=== PATIENT | female | born 1950 | race Caucasian/White ===

== ENCOUNTER 2017-12-12 08:05 | Emergency (ER) | payer MEDICARE, OTHER ==
[~2017-12-12] VITALS: Ht 152.4 cm; Wt 67.1 kg
[2017-12-12] MEDS ORDERED: HYDR-971 PO (08:41)
[2017-12-12] MEDS ORDERED: INDO50CA PO (08:41)
--- NOTE | 2017-12-12 08:44 | PHYS DOC ---
General Chief Complaint: KNEE SWELLING Stated Complaint: LOWER EXTREMITY PAIN Time Seen by MD: 08:07 Source: patient Exam Limitations: no limitations Problems: History of Present Illness Initial Comments Patient is a 67-year-old female who comes to the ED complaining of right knee pain and swelling. Patient states that she started noticing pain stiffness and swelling in her right knee last night before going to bed. This morning her right knee was swollen and very painful and she states she is unable to bear weight on it. She lives with her son and he brought her to the emergency department and arrives in her own wheelchair. She does have a walker which she can use at home as well. Patient denies any new injury no popping or clicking and no cuts or abrasions anywhere in her right leg. No history of bacteremia or MRSA. Patient has a remote history of right knee arthroscopy for meniscal issue and has osteoarthritis as well. She has pain with any range of motion at the knee and on my evaluation with simple palpation of the joint capsule itself. Further questioning reveals patient does have a history of gout and symptoms are similar. Onset: yesterday Severity: severe Pain/Injury Location: right knee Method of Injury: other Modifying Factors: worse with jarring, worse with movement, improves with rest Allergies: Coded Allergies: Penicillins (Verified Allergy, Intermediate, 12/12/17) Past Medical History Medical History: other (osteoarthritis, diabetes, fibromyalgia, GERD, hypertension, Crohn's, gout) Surgical History: other (hysterectomy, left total knee replacement, right knee arthroscopy) Social History Smoker: non-smoker Alcohol: none Drugs: none Review of Systems Constitutional: denies chills, denies diaphoresis, denies fever, denies malaise Respiratory: denies cough, denies shortness of breath Cardiovascular: denies chest pain, denies palpitations Gastrointestinal: denies abdominal pain, denies nausea, denies vomiting Musculoskeletal: see HPI Psychiatric/Neurological: denies numbness, denies paresthesia, denies weakness Physical Exam General Appearance: WD/WN, no apparent distress HEENT: PERRL/EOMI, normal ENT inspection (very poor dentition) Neck: non-tender, supple Cardiovascular/Respiratory: normal peripheral pulses, no respiratory distress Back: no CVA tenderness, no vertebral tenderness Knees: right knee other (2+ effusion, the joint is very warm to the touch with joint capsule tenderness. Pain with any range of motion there is no evidence of injury and no bony tenderness or bruising) Neurologic/Tendon: normal sensation, normal motor functions, normal tendon functions, responds to pain, no evidence tendon injury Psychiatric: alert, oriented x 3 Skin: warm/dry Orders, Labs, Meds Patient is in agreement, plain films would likely be of no benefit due to no trauma. Physical exam findings are consistent with septic joint versus gouty arthritis. No history of bacteremia, no obvious entry point, normal vital signs are all go against septic joint. Patient refuses joint aspiration for diagnostic/therapeutic "I hate needles." Will treat as gouty exacerbation, pt given colchicine 1.2mg and norco 7.5mg in ED. I discussed signs and symptoms to monitor as well as indications for urgent return to the department. I discussed [id number] prescription medications and close PCP follow-up within the next 2 days. Patient's questions were answered to her satisfaction and she expressed agreement and understanding of the treatment plan. She feels comfortable going home as her son lives with her and will be able to care for her while she is less mobile than normal. Departure Time of Disposition: 08:42 Disposition: 01 HOME, SELF-CARE Diagnosis: Gout Exacerbation right knee Condition: STABLE Patient Instructions: Gout, [id number] Additional Instructions: Please review the patient education materials given by ED staff. Activity as tolerated. Prescription: [place] 5 mg quantity 20, indomethacin 50 mg Take medications with food to avoid nausea. Take [id number] stool softeners and increase fluid intake to avoid opiate associated constipation. Follow-up with Dr. Hernandez in 2-3 days for recheck. Return to ED with new or changing symptoms. PAULINA RODRIGES DO Dec 12, 2017 08:44
[2017-12-12] MEDS: COLCHICINE 0.6 MG TABLET PO ONE ×2 (08:49→09:00)
[2017-12-12] MEDS ORDERED: HYDROcodone/APAP 7.5/325MG 1 TAB TABLET PO ONE (09:00)
[2017-12-12] MEDS ORDERED: ONDANSETRON ODT 4 MG TAB.RAPDIS PO ONE (09:00)
[2017-12-12 09:01] VITALS: BP 150/84
== END 2017-12-12 09:01 | disposition home or self-care (01) ==
LOC: ER 08:05
DX: M10.9 Gout, unspecified (principal); M25.561 Pain in right knee; M19.90 Unspecified osteoarthritis, unspecified site; E11.9 Type 2 diabetes mellitus without complications; M79.7 Fibromyalgia; K21.9 Gastro-esophageal reflux disease without esophagitis; I10 Essential (primary) hypertension; K50.90 Crohn's disease, unspecified, without complications; Z96.653 Presence of artificial knee joint, bilateral; Z88.0 Allergy status to penicillin
CPT/HCPCS: 99284; Q0162

== ENCOUNTER 2017-12-17 18:24 | Emergency (ER) | payer MEDICARE, OTHER ==
[~2017-12-17] VITALS: Ht 152.4 cm; Wt 67.1 kg
[~2017-12-17 18:24] MED LIST: HYDR-971 PO; INDO50CA PO
[2017-12-17] MEDS ORDERED: diphenhydrAMINE 50 MG/ML VIAL ONE (18:57)
[2017-12-17] MEDS ORDERED: KETOROLAC 15 MG/ML VIAL. ONE (18:57)
[2017-12-17] MEDS ORDERED: KETOROLAC 15 MG/ML VIAL. IV ONE (19:15)
[2017-12-17] MEDS ORDERED: diphenhydrAMINE 50 MG/ML VIAL IVP ONE (19:15)
[2017-12-17] MEDS ORDERED: KETOROLAC 30 MG/ML VIAL. IV ONE (19:30)
[2017-12-17] MEDS: IV NORMAL SALINE 1,000ML 1,000 ML IV SCH ×3 (19:30→21:30)
[2017-12-17] MEDS ORDERED: ONDANSETRON PF 4 MG/2 ML VIAL. IV ONE (19:30)
[2017-12-17] MEDS ORDERED: IOHEXOL 300 MG/ML 75 ML VIAL. IV ONE (19:45)
[2017-12-17 19:56] LABS: BASO % 0 % (0-3); EOS # 0.2 x10^3/uL (0.0-0.7); EOS % 2 % (0-3); HEMATOCRIT 32.3 % (36.0-47.0); HEMOGLOBIN 10.2 g/dL (12.0-15.5); LYMPH # 1.7 x10^3/uL (1.0-4.8); LYMPH % 16 % (24-48); MEAN CORPUSCULAR HEMOGLOBIN 22 pg (25-35); MEAN CORPUSCULAR HGB CONC 32 g/dL (31-37); MEAN CORPUSCULAR VOLUME 68 fL (79-100); MONO # 0.6 x10^3/uL (0.0-1.1); MONO % 6 % (0-9); NEUT # 8.2 x10^3uL (1.8-7.7); NEUT % 76 % (31-73); PLATELET COUNT 366 x10^3/uL (140-400); RED BLOOD COUNT 4.74 x10^6/uL (3.50-5.40); RED CELL DISTRIBUTION WIDTH 19.8 % (11.5-14.5); WHITE BLOOD COUNT 10.7 x10^3/uL (4.0-11.0)
[2017-12-17] MEDS ORDERED: CONTRAST GIVEN MC PRN (20:00)
--- NOTE | 2017-12-17 20:01 | RAD ---
Indication: Hypertension. History of stroke TECHNIQUE: CT head without IV contrast COMPARISON: None FINDINGS: No pathologic extra-axial or intra-axial fluid collection. The ventricles and basal cisterns are within normal limits. No focal loss of john-white differentiation. No acute intracranial bleed. Visualized orbits within normal limits. No calvarial lesion. Visualized paranasal sinuses and mastoid air cells are clear. IMPRESSION: No acute intracranial process on this noncontrast CT. Electronically signed by: Tai High DO (12/17/2017 7:57 PM) [facility]
[2017-12-17 20:02] LABS: ALBUMIN 3.7 g/dL (3.4-5.0); POTASSIUM 3.2 mmol/L (3.5-5.1); TOTAL BILIRUBIN 0.2 mg/dL (0.2-1.0); TOTAL PROTEIN 7.4 g/dL (6.4-8.2)
--- NOTE | 2017-12-17 20:51 | RAD ---
Indication: Umbilical pain, nausea and headache TECHNIQUE: CT abdomen and pelvis with 75 mL of Omnipaque 300 with multiplanar reformats. COMPARISON: None FINDINGS: Heart is normal in size. No pericardial or pleural effusion. Lobulated high attenuating lesion is seen in the right lower lobe measuring 1.5 x 1.2 cm. Liver is normal in morphology without focal lesion. Spleen is not enlarged and show no focal lesion. No radiopaque gallstones. No pericholecystic fluid or gallbladder wall thickening. Pancreas within normal limits without peripancreatic inflammatory changes or focal pancreatic lesion. Adrenal glands show no focal mass. No nephrolithiasis or hydronephrosis. Evaluation of pelvis limited due to streak artifact from the right hip prosthesis. Calcific densities seen in the region of the right distal ureter proximal to right UVJ. No retroperitoneal or pelvic adenopathy. No bowel obstruction. Sigmoid diverticulosis. Appendix not visualized. No right lower quadrant inflammatory changes. No umbilical hernia. Suboptimal evaluation of bladder due to streak artifact from the right hip prosthesis. No suspicious bony lesion. IMPRESSION: 1. 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 However, nonemergent CT angiogram of the chest recommended. 2. Streak artifact from the right hip prosthesis limits evaluation of the pelvis. Calcific densities along the expected course of the right distal ureter most likely phleboliths. 3. Sigmoid diverticulosis without diverticulitis. Electronically signed by: Tai High DO (12/17/2017 8:48 PM) [facility]
[2017-12-17 21:22] LABS: ANISOCYTOSIS SLIGHT; OVALOCYTES FEW; PLT ESTIMATE ADEQUATE (ADEQUATE); TARGET CELLS FEW
[2017-12-17 21:23] LABS: HYPOCHROMIA MOD; MICROCYTOSIS MOD; POLYCHROMASIA PRESENT
[2017-12-17 22:15] LABS: BILIRUBIN,URINE NEG (NEG); CLARITY,URINE CLEAR; COLOR,URINE STRAW; GLUCOSE,URINE NEG (NEG)
[2017-12-17 22:16] LABS: BACTERIA,URINE 0 /HPF (0-FEW); NITRITE,URINE NEG (NEG); RBC,URINE 0 /HPF (0-2); SQUAMOUS EPITHELIAL CELL,UR FEW /LPF; UROBILINOGEN,URINE 0.2 mg/dL (0.2 mg/dL); WBC,URINE OCC /HPF (0-4)
[2017-12-17] MEDS ORDERED: ACETAMINOPHEN 500 MG TABLET PO ONE ×3 (22:27→22:45)
[2017-12-17] MEDS: IBUPROFEN 600 MG TABLET. PO ONE (22:30)
[2017-12-17] MEDS ORDERED: NAPROXEN 500 MG TABLET PO ONE (22:45)
--- NOTE | 2017-12-17 23:25 | PHYS DOC ---
Past History Past Medical History: Arthritis, Asthma, CVA, Diabetes, Fibromyalgia, GERD, Hypertension, Other Past Surgical History: Hysterectomy, Knee Replacement, Other Alcohol Use: None Drug Use: None Adult General Chief Complaint Chief Complaint: HYPERTENSION HPI HPI 67-year-old female complaining of crampy abdominal pain. Patient has nausea and vomiting. No diarrhea. She states she has a history Crohn's disease and her abdomen is been bothering her. Patient also reports gradual onset of mild headache typical for her. She is concerned because her blood pressure is elevated. No chest pain or shortness breath. No other concerns or complaints Review of Systems Review of Systems Constitutional: Denies fever or chills [] Eyes: Denies change in visual acuity, redness, or eye pain [] HENT: Denies nasal congestion or sore throat [] Respiratory: Denies cough or shortness of breath [] Cardiovascular: No additional information not addressed in HPI [] GI: Denies abdominal pain, nausea, vomiting, bloody stools or diarrhea [] : Denies dysuria or hematuria [] Musculoskeletal: Denies back pain or joint pain [] Integument: Denies rash or skin lesions [] Neurologic: Denies headache, focal weakness or sensory changes [] Endocrine: Denies polyuria or polydipsia [] All other systems were reviewed and found to be within normal limits, except as documented in this note. Current Medications Current Medications Current Medications Medications (Trade) Dose Ordered Sig/[place] Start Time Stop Time Status Last Admin Dose Admin Acetaminophen (Tylenol) 500 mg STK-MED ONCE 12/17/17 22:42 12/17/17 22:43 DC Diphenhydramine HCl (Benadryl) 50 mg 1X ONCE 12/17/17 19:15 12/17/17 19:16 DC 12/17/17 18:58 50 MG Ibuprofen (Motrin) 600 mg 1X ONCE 12/17/17 22:30 12/17/17 22:42 DC Info (Do NOT chart on this entry -- for MONITORING) 1 each PRN DAILY PRN 12/17/17 20:00 12/19/17 19:59 Iohexol (Omnipaque 300 Mg/ml) 75 ml 1X ONCE 12/17/17 19:45 12/17/17 19:46 DC 12/17/17 20:18 75 ML Ketorolac Tromethamine (Toradol) 30 mg 1X ONCE 12/17/17 19:30 12/17/17 19:47 DC Naproxen (Naprosyn) 500 mg 1X ONCE 12/17/17 22:45 12/17/17 22:46 DC Ondansetron HCl (Zofran) 4 mg 1X ONCE 12/17/17 19:30 12/17/17 19:47 DC 12/17/17 19:30 4 MG Sodium Chloride 1,000 ml @ 1,000 mls/hr Q1H 12/17/17 19:30 12/17/17 22:32 DC 12/17/17 19:30 1,000 MLS/HR Allergies Allergies Allergies Coded Allergies Type Severity Reaction Last Updated Verified Penicillins Allergy Intermediate 12/17/17 Yes ibuprofen Allergy Unknown 12/17/17 Yes oxycodone Allergy Unknown 12/17/17 Yes Physical Exam Physical Exam Well-appearing patient minimal diffuse abdominal tenderness no guarding or rebound no mass or megaly. Normal bowel sounds nondistended no CVA tenderness no suprapubic tenderness Constitutional: Well developed, well nourished, no acute distress, non-toxic appearance. [] HENT: Normocephalic, atraumatic, bilateral external ears normal, oropharynx moist, no oral exudates, nose normal. [] Eyes: PERRLA, EOMI, conjunctiva normal, no discharge. [] Neck: Normal range of motion, no tenderness, supple, no stridor. [] Cardiovascular:Heart rate regular rhythm, no murmur [] Lungs & Thorax: Bilateral breath sounds clear to auscultation [] Abdomen: Bowel sounds normal, soft, no tenderness, no masses, no pulsatile masses. [] Skin: Warm, dry, no erythema, no rash. [] Back: No tenderness, no CVA tenderness. [] Extremities: No tenderness, no cyanosis, no clubbing, ROM intact, no edema. [] Neurologic: Alert and oriented X 3, normal motor function, normal sensory function, no focal deficits noted. [] Psychologic: Affect normal, judgement normal, mood normal. [] Current Patient Data Vital Signs Vital Signs Date Time Temp Pulse Resp B/P (MAP) Pulse Ox O2 Delivery O2 Flow Rate FiO2 12/17/17 18:35 98.0 79 20 98 Room Air Lab Results Laboratory Tests Test 12/17/17 18:50 2/11/18 21:00 White Blood Count 10.7 x10^3/uL (4.0-11.0) Red Blood Count 4.74 x10^6/uL (3.50-5.40) Hemoglobin 10.2 g/dL (12.0-15.5) L Hematocrit 32.3 % (36.0-47.0) L Mean Corpuscular Volume 68 fL (79-100) L Mean Corpuscular Hemoglobin 22 pg (25-35) L Mean Corpuscular Hemoglobin Concent 32 g/dL (31-37) Red Cell Distribution Width 19.8 % (11.5-14.5) H Platelet Count 366 x10^3/uL (140-400) Neutrophils (%) (Auto) 76 % (31-73) H Lymphocytes (%) (Auto) 16 % (24-48) L Monocytes (%) (Auto) 6 % (0-9) Eosinophils (%) (Auto) 2 % (0-3) Basophils (%) (Auto) 0 % (0-3) Neutrophils # (Auto) 8.2 x10^3uL (1.8-7.7) H Lymphocytes # (Auto) 1.7 x10^3/uL (1.0-4.8) Monocytes # (Auto) 0.6 x10^3/uL (0.0-1.1) Eosinophils # (Auto) 0.2 x10^3/uL (0.0-0.7) Basophils # (Auto) 0.0 x10^3/uL (0.0-0.2) Platelet Estimate Adequate (ADEQUATE) Polychromasia Present Hypochromasia Mod Anisocytosis Slight Microcytosis Mod Target Cells Few Ovalocytes Few Sodium Level 140 mmol/L (136-145) Potassium Level 3.2 mmol/L (3.5-5.1) L Chloride Level 103 mmol/L (98-107) Carbon Dioxide Level 27 mmol/L (21-32) Anion Gap 10 (6-14) Blood Urea Nitrogen 19 mg/dL (7-20) Creatinine 1.0 mg/dL (0.6-1.0) Estimated GFR (Cockcroft-Gault) 55.0 BUN/Creatinine Ratio 19 (6-20) Glucose Level 124 mg/dL (70-99) H Calcium Level 9.0 mg/dL (8.5-10.1) Total Bilirubin 0.2 mg/dL (0.2-1.0) Aspartate Amino Transferase (AST) 19 U/L (15-37) Alanine Aminotransferase (ALT) 21 U/L (14-59) Alkaline Phosphatase 60 U/L (46-116) Total Protein 7.4 g/dL (6.4-8.2) Albumin 3.7 g/dL (3.4-5.0) Albumin/Globulin Ratio 1.0 (1.0-1.7) Lipase 120 U/L (73-393) Urine Collection Type Unknown Urine Color Straw Urine Clarity Clear Urine pH 5.5 Urine Specific [place] <=1.005 Urine Protein Neg (NEG-TRACE) Urine Glucose (UA) Neg mg/dL (NEG) Urine Ketones (Stick) Neg mg/dL (NEG) Urine Blood Neg (NEG) Urine Nitrite Neg (NEG) Urine Bilirubin Neg (NEG) Urine Urobilinogen Dipstick 0.2 mg/dL (0.2 mg/dL) Urine Leukocyte Esterase Neg (NEG) Urine RBC 0 /HPF (0-2) Urine WBC Occ /HPF (0-4) Urine Squamous Epithelial Cells Few /LPF Urine Bacteria 0 /HPF (0-FEW) EKG EKG [] Radiology/Procedures Radiology/Procedures [] Course & Med Decision Making Course & Med Decision Making Pertinent Labs and Imaging studies reviewed. (See chart for details) Signs and symptoms consistent with viral syndrome with nausea and vomiting and well-appearing patient stable after hydration. Gradual onset of mild headache. CT head unremarkable. CT abdomen and pelvis with diverticulosis but no evidence of diverticulitis and no other acute pathology. 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 Patient is aware this finding of critical importance of close follow-up with her primary care doctor for CTA of the chest definitive diagnosis and further workup and treatment as needed. Workup benign. Patient agrees with outpatient follow-up and strict return precautions given [] Dragon Disclaimer Dragon Disclaimer This electronic medical record was generated, in whole or in part, using a voice recognition dictation system. Departure Departure: Impression: Primary Impression: Abdominal pain Additional Impressions: Nausea and vomiting Viral syndrome Hypokalemia Anemia Disposition: 01 HOME, SELF-CARE Condition: IMPROVED Referrals: DUFF,AG L DO (PCP) Patient Instructions: Abdominal Pain (Nonspecific) Additional Instructions: It appears that you have a viral syndrome causing your crampy abdominal pain with nausea and vomiting. Use Zofran 1 pill under your tongue every 4 hours as needed. Rest and drink plenty of fluids. Other incidental findings today include mild anemia with hemoglobin of 10.2 and potassium of 3.2. Take the potassium supplementation as prescribed once a day for [address] shows diverticulosis without evidence of diverticulitis. There was an incidental finding on your CAT scan of what appears to be an arteriovenous malformation of your right lower lung. Follow-up with your doctor for reevaluation and to discuss this result and arrange an outpatient CT angiogram of your chest to fully elaborate the nature and extent of this finding and make a definitive diagnosis. Your doctor can discuss the results with you and arrange further workup and treatment as needed. Return immediately for new severe worsening symptoms Problem Qualifiers SEB CHO MD Dec 17, 2017 23:25
[2017-12-17 23:31] VITALS: BP 133/81
== END 2017-12-17 23:45 | disposition home or self-care (01) ==
LOC: ER 18:24
DX: B34.9 Viral infection, unspecified (principal); R10.9 Unspecified abdominal pain; D64.9 Anemia, unspecified; R51 Headache; E11.9 Type 2 diabetes mellitus without complications; E87.6 Hypokalemia; I10 Essential (primary) hypertension; J45.909 Unspecified asthma, uncomplicated; K21.9 Gastro-esophageal reflux disease without esophagitis; K50.90 Crohn's disease, unspecified, without complications; M79.7 Fibromyalgia; Z86.73 Personal history of transient ischemic attack (TIA), and cerebral infarction without residual deficits; Z88.0 Allergy status to penicillin; Z88.5 Allergy status to narcotic agent; Z88.6 Allergy status to analgesic agent
CPT/HCPCS: 36415; 70450; 74177; 80053; 81001; 83690; 85025; 96374; 96375; 99285; J1200; J1885; J2405; Q9967; J7030

== ENCOUNTER → 2018-01-01 | Outpatient (CLI) | payer MEDICARE, OTHER ==
[2017-12-17 23:31] VITALS: BP 133/81
[~2018-01-01] MED LIST changes: +IOHEXOL 300 MG/ML 75 ML VIAL. IV ONE
--- NOTE | 2018-01-01 10:45 | RAD ---
Examination: CT angiography chest History : History of AVM right lower lobe of the lung Comparison: CT abdomen and pelvis 12/17/2017 Technique: Axial CT images were performed with IV contrast with coronal and sagittal 3-D MIP reformats were performed PQRS Compliance Statement: One or more of the following individualized dose reduction techniques were utilized for this examination: 1. Automated exposure control 2. Adjustment of the mA and/or kV according to patient size 3. Use of iterative reconstruction technique. Findings: The visualized thyroid gland grossly appears unremarkable and central airways are patent. The ascending aorta measures 3.7 cm in transverse dimension. There is no evidence of filling defect identified in the main pulmonary artery trunk and right and left main pulmonary arteries and the visualized lobar, segmental branches of the pulmonary arteries. The heart size grossly appears unremarkable. There is a lobulated 1.8 cm density identified in the right lower lobe of the lung base demonstrates peripheral calcification could be AV malformation or nodule. Differentiation is difficult. Otherwise the lungs are clear. The visualized liver, spleen, adrenals grossly appears unremarkable. The gallbladder is mildly distended. Mild degenerative changes thoracic spine. Impression: 1. No evidence of pulmonary embolism. 2. Lobulated peripherally calcified density measuring 1.8 cm identified in the right lower lobe of the lung could be a arterial venous malformation or nodule. Follow-up examination in 6 months is recommended to document stability.
== END | disposition home or self-care (01) ==
LOC: CT 09:54
PROVIDERS: ATTEND Family Medicine
DX: R91.8 Other nonspecific abnormal finding of lung field (principal); K82.8 Other specified diseases of gallbladder
CPT/HCPCS: 71275; Q9967

== ENCOUNTER 2018-03-26 17:31 | Emergency (ER) | payer MEDICARE, OTHER ==
[~2018-03-26] VITALS: Ht 152.4 cm; Wt 72.8 kg
[~2018-03-26 17:31] MED LIST changes: -IOHEXOL 300 MG/ML 75 ML VIAL. IV ONE
[2018-03-26] MEDS ORDERED: DOXYCYCLINE HYCLATE 100 MG TABLET PO ONE (18:30)
[2018-03-26] MEDS ORDERED: DOXY100C2 PO (18:30)
--- NOTE | 2018-03-26 18:31 | PHYS DOC ---
Past History Past Medical History: Arthritis, Asthma, CVA, Diabetes, Fibromyalgia, GERD, Hypertension, Other Past Surgical History: Hip Replacement, Hysterectomy, Oophorectomy, Tonsillectomy, Other Alcohol Use: None Drug Use: None Adult General Chief Complaint Chief Complaint: ABSCESS HPI HPI Patient is a 67 year old female who presents with complaint of a skin abscess. Patient states that the skin abscess is located just above her vagina in her pubic area. Patient states that she noticed this yesterday. Patient states that it seemed to be quite large yesterday that has since decreased in size after it ruptured and drained. Patient states that she's had purulent drainage and blood from the area and small amounts. The patient has not had any history of prior skin abscess and was not sure what to do to take care of it, thus she came to the emergency department for evaluation. Patient has had no fevers and denies any other somatic symptoms at this time. The patient does have history of diabetes mellitus. Patient states that the area itself is tender but denies any red streaking from the area. Review of Systems Review of Systems Constitutional: Denies fever or chills [] Eyes: Denies change in visual acuity, redness, or eye pain [] HENT: Denies nasal congestion or sore throat [] Respiratory: Denies cough or shortness of breath [] Cardiovascular: Denies chest pain or edema[] GI: Denies abdominal pain, nausea, vomiting, bloody stools or diarrhea [] : Denies dysuria or hematuria [] Musculoskeletal: Denies back pain or joint pain [] Integument: Abscess[] Neurologic: Denies headache, focal weakness or sensory changes [] Endocrine: Denies polyuria or polydipsia [] All other systems were reviewed and found to be within normal limits, except as documented in this note. Allergies Allergies Allergies Coded Allergies Type Severity Reaction Last Updated Verified Penicillins Allergy Intermediate 03/26/18 Yes ibuprofen Allergy Unknown 03/26/18 Yes oxycodone Allergy Unknown 03/26/18 Yes Physical Exam Physical Exam Constitutional: Well developed, well nourished, no acute distress, non-toxic appearance. [] HENT: Normocephalic, atraumatic, bilateral external ears normal, oropharynx moist, no oral exudates, nose normal. [] Eyes: PERRLA, EOMI, conjunctiva normal, no discharge. [] Neck: Normal range of motion, no tenderness, supple, no stridor. [] Cardiovascular:Heart rate regular rhythm, no murmur [] Lungs & Thorax: Bilateral breath sounds clear to auscultation [] Abdomen: Bowel sounds normal, soft, no tenderness, no masses, no pulsatile masses. : 1 cm open fluctuant lesion with purulent drainage overlying the mons pubis, mild surrounding erythema, mild tenderness to palpation.[] Skin: Warm, dry, no rash. [] Back: No tenderness, no CVA tenderness. [] Extremities: No tenderness, no cyanosis, no clubbing, ROM intact, no edema. [] Neurologic: Alert and oriented X 3, normal motor function, normal sensory function, no focal deficits noted. [] Current Patient Data Vital Signs Vital Signs Date Time Temp Pulse Resp B/P (MAP) Pulse Ox O2 Delivery O2 Flow Rate FiO2 03/26/18 17:31 98.8 69 18 96 Room Air Lab Results Not performed EKG EKG Not performed[] Radiology/Procedures Radiology/Procedures Not performed[] Course & Med Decision Making Course & Med Decision Making Pertinent Labs and Imaging studies reviewed. (See chart for details) The affected area is amenable to medical treatment at this time and does not require incision and drainage as it is currently draining. Patient started on oral doxycycline in the emergency department. Advised patient follow-up with primary doctor in 2-3 days for reevaluation and recommended return emergency department for any worsening symptoms. Patient voiced understanding and in agreement with treatment plan. Dragon Disclaimer Dragon Disclaimer This electronic medical record was generated, in whole or in part, using a voice recognition dictation system. Departure Departure: Impression: Primary Impression: Abscess Disposition: 01 HOME, SELF-CARE Condition: STABLE Referrals: AG NORIEGA DO (PCP) Patient Instructions: Abscess Additional Instructions: Be sure to hold warm compresses over the affected area for 15-20 minutes at least 3-4 times a day to help the area to continue to drain. Follow-up with your primary doctor in 2-3 days for reevaluation. Return to emergency department for any worsening symptoms. Scripts Doxycycline Hyclate (DOXYCYCLINE HYCLATE) 100 Mg Capsule 1 CAP PO BID, #[id number] CAP Prov: ALIS DARDEN MD 03/26/18 ALIS DARDEN MD March 26, 2018 18:31
[2018-03-26 19:04] VITALS: BP 124/73
== END 2018-03-26 19:05 | disposition home or self-care (01) ==
LOC: ER 17:31
DX: L02.818 Cutaneous abscess of other sites (principal); M19.90 Unspecified osteoarthritis, unspecified site; J45.909 Unspecified asthma, uncomplicated; E11.9 Type 2 diabetes mellitus without complications; M79.7 Fibromyalgia; K21.9 Gastro-esophageal reflux disease without esophagitis; I10 Essential (primary) hypertension; Z86.73 Personal history of transient ischemic attack (TIA), and cerebral infarction without residual deficits; Z88.0 Allergy status to penicillin; Z88.6 Allergy status to analgesic agent; Z88.5 Allergy status to narcotic agent
CPT/HCPCS: 99283

== ENCOUNTER 2018-11-13 15:56 | Emergency (ER) | payer MEDICARE, OTHER ==
[~2018-11-13] VITALS: Ht 154.9 cm; Wt 74.8 kg
[~2018-11-13 15:56] MED LIST changes: +DOXY100C2 PO; +HYDR-3165 PO; -HYDR-971 PO; -INDO50CA PO; +INDO50CA5 PO
--- NOTE | 2018-11-13 16:39 | PHYS DOC ---
Past History Past Medical History: Arthritis, Asthma, CVA, Diabetes, Fibromyalgia, GERD, Hypertension, Other Past Surgical History: Hip Replacement, Hysterectomy, Oophorectomy, Tonsillectomy, Other Smoking: Non-smoker Alcohol Use: None Drug Use: None Adult General Chief Complaint Chief Complaint: HAND PROBLEM HPI HPI Patient is a 68 year old right-handed female who presents with complaining of right hand edema and pain since yesterday without injury. Patient states she has had several wrist fracture more than 30 years ago and denies new injury. Patient complaining of mild erythema of the radial side of wrist with painful range of motion. Patient complaining of numbness of her hand intermittently. Review of Systems Review of Systems Constitutional: Denies fever or chills [] Eyes: Denies change in visual acuity, redness, or eye pain [] HENT: Denies nasal congestion or sore throat [] Respiratory: Denies cough or shortness of breath [] Cardiovascular: No additional information not addressed in HPI [] GI: Denies abdominal pain, nausea, vomiting, bloody stools or diarrhea [] : Denies dysuria or hematuria [] Musculoskeletal: Denies back pain or joint pain [] Integument: Denies rash or skin lesions [] Neurologic: Denies headache, focal weakness or sensory changes [] Endocrine: Denies polyuria or polydipsia [] All other systems were reviewed and found to be within normal limits, except as documented in this note. Current Medications Current Medications Current Medications Medications (Trade) Dose Ordered Sig/[place]ourdes Start Time Stop Time Status Last Admin Dose Admin Acetaminophen/ Hydrocodone Bitart (Lortab 5/325) 1 tab 1X ONCE 11/13/18 16:50 11/13/18 16:51 Allergies Allergies Allergies Coded Allergies Type Severity Reaction Last Updated Verified Penicillins Allergy Intermediate 03/26/18 Yes ibuprofen Allergy Unknown 03/26/18 Yes oxycodone Allergy Unknown 03/26/18 Yes Physical Exam Physical Exam Constitutional: Well developed, well nourished, mild distress, non-toxic appearance. [] HENT: Normocephalic, atraumatic Eyes: PERRLA, EOMI, conjunctiva normal, no discharge. [] Neck: Normal range of motion, no tenderness, supple, no stridor. [] Cardiovascular:Heart rate regular rhythm, no murmur [] Lungs & Thorax: Bilateral breath sounds clear to auscultation [] Skin: Warm, dry, no erythema, no right place with mild edema in the radial side without erythema No tenderness, no cyanosis, no clubbing, ROM intact, no edema. [] Neurologic: Alert and oriented X 3, normal motor function, normal sensory function, no focal deficits noted. [] Psychologic: Affect normal, judgement normal, mood normal. [] Current Patient Data Vital Signs Vital Signs Date Time Temp Pulse Resp B/P (MAP) Pulse Ox O2 Delivery O2 Flow Rate FiO2 11/13/18 16:07 98.3 63 16 95 Room Air EKG EKG [] Radiology/Procedures Radiology/[place] [address] IMAGING REPORT Signed PATIENT: MADI MARISCAL ACCOUNT: [id number] : 1950 LOCATION: ER AGE: 68 SEX: F EXAM STATUS: REG ER ORD. PHYSICIAN: DERIAN ALFONSO MD REASON: pain PROCEDURE: HAND RIGHT 3V Clinical indications: Hand and wrist swelling that started 2 days ago. Pain. No recent trauma. 3 view right wrist study: No acute fracture or dislocation or osteolytic process is seen. There is widening of the scaphoid lunate joint space which may be due to a tear of the scaphoid lunate ligament. 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 Three-view right hand study: No acute fracture or dislocation or osteolytic process is seen. There is mild primary degenerative osteoarthritis of the first interphalangeal joint. IMPRESSION: No acute osseous abnormality. Scaphoid lunate ligament tear. 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 No radiopaque foreign body is evident. Electronically signed by: Zain Farley MD (11/13/2018 5:11 PM) [id number] DICTATED AND SIGNED BY: ZAIN FARELY MD DATE: 11/13/18 1708 CC: AG NORIEGA DO; DERIAN ALFONSO MD ~ Course & Med Decision Making Course & Med Decision Making Pertinent Imaging studies reviewed. (See chart for details) Evaluation of patient in ER showed 68-year-old female patient with complaining of pain and edema of the right wrist without injury. X-ray did not show acute bone problem and showed scaphoid lunate ligament tear. Velcro wrist splint was provided and patient instructed to follow-up with her primary care physician. Dragon Disclaimer Dragon Disclaimer This electronic medical record was generated, in whole or in part, using a voice recognition dictation system. Departure Departure: Impression: Primary Impression: Sprain of right wrist Disposition: HOME, SELF-CARE (at 1720) Condition: IMPROVED Referrals: AG NORIEGA DO (PCP) Patient Instructions: Wrist Sprain with [facility] Additional Instructions: Apply ice on the affected area Follow-up with your primary care physician in 3-5 days Return to ER if not getting better Scripts Hydrocodone Bit/Acetaminophen (NORCO 5-325 TABLET) 1 Each Tablet 1 TAB PO PRN Q6HRS PRN for PAIN, #14 TAB 0 Refills Prov: DERIAN ALFONSO MD 11/13/18 DERIAN ALFONSO MD Nov 13, 2018 16:39
[2018-11-13] MEDS ORDERED: HYDROcodone/APAP 5/325MG 1 TAB TABLET PO ONE (16:50)
--- NOTE | 2018-11-13 17:15 | RAD ---
Clinical indications: Hand and wrist swelling that started 2 days ago. Pain. No recent trauma. 3 view right wrist study: No acute fracture or dislocation or osteolytic process is seen. There is widening of the scaphoid lunate joint space which may be due to a tear of the scaphoid lunate ligament. 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 Three-view right hand study: No acute fracture or dislocation or osteolytic process is seen. There is mild primary degenerative osteoarthritis of the first interphalangeal joint. IMPRESSION: No acute osseous abnormality. Scaphoid lunate ligament tear. 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 No radiopaque foreign body is evident. Electronically signed by: Freeman Farley MD (11/13/2018 5:11 PM) [id number]
[2018-11-13] MEDS ORDERED: HYDR-3165 PO (17:22)
[2018-11-13 17:28] VITALS: BP 142/92
== END 2018-11-13 17:30 | disposition home or self-care (01) ==
LOC: ER 15:56
DX: S63.591A Other specified sprain of right wrist, initial encounter (principal); M19.90 Unspecified osteoarthritis, unspecified site; J45.909 Unspecified asthma, uncomplicated; E11.9 Type 2 diabetes mellitus without complications; M79.7 Fibromyalgia; K21.9 Gastro-esophageal reflux disease without esophagitis; I10 Essential (primary) hypertension; Z86.73 Personal history of transient ischemic attack (TIA), and cerebral infarction without residual deficits; Z88.0 Allergy status to penicillin; Z88.6 Allergy status to analgesic agent; Z88.5 Allergy status to narcotic agent; X58.XXXA Exposure to other specified factors, initial encounter; Y93.89 Activity, other specified; Y92.89 Other specified places as the place of occurrence of the external cause; Y99.8 Other external cause status
CPT/HCPCS: 29125; 73110; 73130; 99283

== ENCOUNTER → 2019-04-29 | Outpatient (CLI) | payer MEDICARE, OTHER ==
--- NOTE | 2019-04-29 10:34 | RAD ---
EXAM: CT Chest without IV contrast CLINICAL HISTORY: Pulmonary nodule COMPARISON: 01/01/2018 TECHNIQUE: CT of the chest without intravenous contrast. Axial, coronal and sagittal reformatted images were generated. ---PQRS compliance statement - One or more of the following individualized dose reduction techniques were utilized for this study: 1. Automated exposure control 2. Adjustment of the mA and/or kV according to patient size 3. Use of iterative reconstruction technique--- FINDINGS: Lack of intravenous contrast limits evaluation of solid organs, vasculature, and lymph nodes. Chest: No pleural effusion or pneumothorax. Heart is not enlarged. Coronary artery calcifications are seen. Calcified mediastinal and hilar lymph nodes are noted. Evaluation for mediastinal and hilar lymphadenopathy is limited given noncontrast examination. No axillary lymphadenopathy. Linear opacities in the left lower lobe and lingula likely scarring/atelectasis. Calcified lung nodule in the right lower lobe appears progressively calcified on today's examination, likely calcified granuloma. Visualized Upper abdomen: Upper abdomen is grossly unremarkable. Bones: Osseous structures are grossly unremarkable. IMPRESSION: 1. Calcified nodule in the right lower lobe is essentially unchanged, possibly calcified granuloma. Electronically signed by: Dwight Meyer MD (04/29/2019 10:31 AM) [facility]
== END | disposition home or self-care (01) ==
LOC: CT 09:10
PROVIDERS: ATTEND Specialist
DX: I25.10 Atherosclerotic heart disease of native coronary artery without angina pectoris (principal); R91.1 Solitary pulmonary nodule; R59.0 Localized enlarged lymph nodes; I10 Essential (primary) hypertension
CPT/HCPCS: 71250

== ENCOUNTER → 2019-05-17 | Day surgery (SDC) | payer MEDICARE, OTHER ==
[~2019-05-17] MED LIST changes: +ALBU2.5V8 INH; +ALBUTEROL SULFATE 2.5 MG/3 ML NEBU. NEB PRN; +ATROPINE 0.5 MG/5 ML DISP.SYRIN. IV PRN; +GABA600T7 PO; +HYDR-2145 PO; +HYOS0.1264 PO; +IV RINGERS SOLUTION,LACTATED 1,000 ML IV SCH; +LIDOCAINE 2% PF Vial for OR 5 ML VIAL. ONE; +META-21 PO; +METF10007 PO; +METO-247 PO; +METR-34 PO; +NALOXONE 0.4 MG/ML VIAL. IV PRN; +OMEP20CA10 PO; +ONDANSETRON PF 4 MG/2 ML VIAL. IV PRN; +ONDANSETRON PF 4 MG/2 ML VIAL. ONE; +PROPOFOL 20 ML IV ONE; +PROPOFOL 40 ML IV ONE; +SIMV40TA3 PO; +SUCR1TAB PO; +SULF1TAB24 PO; +TRAM50TA PO; +hydrALAZINE 20 MG/ML VIAL. IV PRN; +hydrALAZINE 20 MG/ML VIAL. ONE
[2019-05-17 14:55] VITALS: BP 196/87
--- NOTE | 2019-05-21 14:07 | PATHOLOGY ---
[facility] Accession Number: [id number] . 01 Material submitted: . PART A: stomach - ANTRUM PART B: stomach - BODY OF STOMACH POLYP. Modifiers: body PART C: colon - ASCENDING COLON POLYP. Modifiers: ascending . 01 Clinical history: . Gastritis . 02 Diagnosis: A. Gastric biopsies, antrum: - Chronic gastritis, mild. . B. Gastric biopsies, stomach body polyp: - Fundic gland polyp, with mild chronic inflammation. . C. Colon biopsy, ascending colon polyp: - Tubular adenoma. (JPM:[facility] 05/21/2019) [facility]/05/21/2019 . 02 Comment: Sections of the gastric antral biopsy show congestion and mild chronic inflammation. There is a lymphoid aggregate present within the inflammatory infiltrate. A properly controlled immunoperoxidase stain for Helicobacter is negative for Helicobacter organisms. . Sections of the gastric body biopsy reveal a fundic gland polyp showing mild chronic inflammation. There are no adenomatous changes or evidence of malignancy. . Sections of the ascending colon biopsy reveal a tubular adenoma showing no high-grade dysplasia or evidence of malignancy. (JPM:[facility] 05/21/2019) . Special stain performed: Immunoperoxidase for Helicobacter on A1. . 02 Electronically signed: . Juan Gomez MD, Pathologist NPI- [id number] . 01 Gross description: . A. The specimen is received in formalin, labeled "[place], [place], antrum-gastric", are two geller soft tissues measuring 0.2 cm in greatest dimension each, entirely submitted in A1. . B. The specimen is received in formalin, labeled "[place], [place], body of stomach polyp", are few geller soft tissue fragments measuring 0.5 x 0.5 x 0.1 cm in aggregate, entirely submitted in B1. . C. The specimen is received in formalin, labeled "[place], [place], ascending colon polyp", is a geller soft tissue measuring 0.2 cm in greatest dimension, entirely submitted in C1. ([facility]; 05/20/2019) [facility] . 02 Pathologist provided ICD-10: K29.50, K31.7, D12.2 . 02 CPT . 263645, 245589, 737029, G55829 Specimen Comment: A courtesy copy of this report has been sent to Specimen Comment: [phone], . Specimen Comment: Report sent to / DR ESCOBAR Performed at: 01 [facility] [address], [place] [id number] MD Mg Gar MD Phone: [phone] Performed at: 02 [facility] [address] [place], [place] [id number] MD Juan Gomez MD Phone: [phone]
== END ==
LOC: SURG 10:41
PROVIDERS: ATTEND Internal Medicine Gastroenterology
DX: Z12.11 Encounter for screening for malignant neoplasm of colon (principal); D12.2 Benign neoplasm of ascending colon; K31.7 Polyp of stomach and duodenum; K29.00 Acute gastritis without bleeding; K29.50 Unspecified chronic gastritis without bleeding; K57.30 Diverticulosis of large intestine without perforation or abscess without bleeding; K64.1 Second degree hemorrhoids; Z88.0 Allergy status to penicillin; Z88.8 Allergy status to other drugs, medicaments and biological substances; Z79.899 Other long term (current) drug therapy
CPT/HCPCS: 43239; 43450; 45380; 82947; 88305; 88342; J0360; J2405; J2704; J7120; 43249; J2001

== ENCOUNTER 2019-05-28 12:36 | Emergency (ER) | payer MEDICARE, OTHER ==
[~2019-05-28] VITALS: Ht 154.9 cm; Wt 72.8 kg
[~2019-05-28 12:36] MED LIST changes: -ALBUTEROL SULFATE 2.5 MG/3 ML NEBU. NEB PRN; -ATROPINE 0.5 MG/5 ML DISP.SYRIN. IV PRN; -HYOS0.1264 PO; -IV RINGERS SOLUTION,LACTATED 1,000 ML IV SCH; -LIDOCAINE 2% PF Vial for OR 5 ML VIAL. ONE; -METR-34 PO; -NALOXONE 0.4 MG/ML VIAL. IV PRN; -ONDANSETRON PF 4 MG/2 ML VIAL. IV PRN; -ONDANSETRON PF 4 MG/2 ML VIAL. ONE; -PROPOFOL 20 ML IV ONE; -PROPOFOL 40 ML IV ONE; -SULF1TAB24 PO; -TRAM50TA PO; -hydrALAZINE 20 MG/ML VIAL. IV PRN; -hydrALAZINE 20 MG/ML VIAL. ONE
--- NOTE | 2019-05-28 12:59 | PHYS DOC ---
Past History Past Medical History: Arthritis, Asthma, CVA, Diabetes, Fibromyalgia, GERD, Hypertension, Other Past Surgical History: Hip Replacement, Hysterectomy, Oophorectomy, Tonsillectomy, Other Smoking: Non-smoker Alcohol Use: None Drug Use: None Adult General Chief Complaint Chief Complaint: RECTAL BLEED HPI HPI Patient is a 68-year-old female presents complaining of left-sided abdominal pain that started approximately 2:00 this morning. Describes it as cramping sensation. Notes blood in her stool. Nothing makes the symptoms better or worse. She is post recent EGD and colonoscopy on May 17, 2019. Biopsies were performed of both sites. No bleeding prior to today. No nausea or vomiting. No coffee ground emesis. Reports that it is bright blood from her rectum. Denies any rashes, bruising, swelling. Denies being on any blood thinners. Symptoms are moderate in intensity.[] Review of Systems Review of Systems Constitutional: Denies fever or chills [] Eyes: Denies change in visual acuity, redness, or eye pain [] HENT: Denies nasal congestion or sore throat [] Respiratory: Denies cough or shortness of breath [] Cardiovascular: No chest pain or palpitations[] GI: See history of present illness[] : Denies dysuria or hematuria [] Musculoskeletal: Denies back pain or joint pain [] Integument: Denies rash or skin lesions [] Neurologic: Denies headache, focal weakness or sensory changes [] Endocrine: Denies polyuria or polydipsia [] All other systems were reviewed and found to be within normal limits, except as documented in this note. Current Medications Current Medications Current Medications Medications (Trade) Dose Ordered Sig/Lourdes Start Time Stop Time Status Last Admin Dose Admin Morphine Sulfate (Morphine 2mg Syringe) 2 mg PRN Q15MIN PRN 05/28/19 13:00 05/29/19 12:59 UNV Sodium Chloride 1,000 ml @ 100 mls/hr Q10H 05/28/19 12:51 05/28/19 22:50 UNV Allergies Allergies Allergies Coded Allergies Type Severity Reaction Last Updated Verified Penicillins Allergy Intermediate 05/17/19 Yes ibuprofen Allergy Unknown 05/17/19 Yes oxycodone Allergy Unknown 05/17/19 Yes Physical Exam Physical Exam Constitutional: Well developed, well nourished, no acute distress, non-toxic appearance. [] HENT: Normocephalic, atraumatic, bilateral external ears normal, oropharynx moist, no oral exudates, nose normal. [] Eyes: PERRLA, EOMI, conjunctiva normal, no discharge. [] Neck: Normal range of motion, no tenderness, supple, no stridor. [] Cardiovascular:Heart rate regular rhythm, no murmur [] Lungs & Thorax: Bilateral breath sounds clear to auscultation [] Abdomen: Bowel sounds normal, soft, left-sided abdominal tenderness, no rebound, no guarding, no rigidity, sits up and lays back without any significant difficulty, no masses, no pulsatile masses. Rectal exam performed with solar manufacturer's representative. No thrombosed hemorrhoids. No external blood. Vault was empty. No gross bleeding. [] Skin: Warm, dry, no erythema, no rash. [] Back: No tenderness, no CVA tenderness. [] Extremities: No tenderness, no cyanosis, no clubbing, ROM intact, no edema. [] Neurologic: Alert and oriented X 3, normal motor function, normal sensory function, no focal deficits noted. [] Psychologic: Affect normal, judgement normal, mood normal. [] EKG EKG [] Radiology/Procedures Radiology/Procedures PROCEDURE: CT ABD PELV W/ORAL&IV CONTRAST EXAM: CT Abdomen and Pelvis with IV contrast CLINICAL HISTORY: Rectal bleeding, colitis. COMPARISON: 12/17/2017 TECHNIQUE: Helical CT of the abdomen and pelvis was performed following the administration of intravenous contrast. Axial, coronal and sagittal reformatted images were generated. PQRS compliance statement - One or more of the following individualized dose reduction techniques were utilized for this study: 1. Automated exposure control 2. Adjustment of the mA and/or kV according to patient size 3. Use of iterative reconstruction technique FINDINGS: Lower chest: Calcified granuloma in the right lower lobe. Linear opacities in the lingula likely scarring/atelectasis. Coronary artery calcifications are seen Abdomen and Pelvis: Gallbladder is normal. No focal liver lesion. Spleen is unremarkable. Adrenal glands are normal in appearance. Pancreas is unremarkable. Symmetric nephrograms. Focal thinning in the lower pole the left kidney likely cortical scarring. No focal renal lesion. No hydronephrosis. No hydroureter. Descending colon and sigmoid are essentially decompressed. Appendix is not seen. No small or large bowel dilatation. Colonic diverticula are seen. No evidence for acute diverticulitis. Of note, evaluation of the pelvis is limited given streak artifact from right hip arthroplasty. No abdominal or pelvic ascites. No abdominal or pelvic lymphadenopathy. Atherosclerotic calcifications of the aorta are seen. Small fat-containing periumbilical hernia is seen. Bones: Left hip osteoarthritis. Right hip arthroplasty. Degenerative changes of the spine are also seen. IMPRESSION: 1. Colonic diverticulosis without evidence for acute diverticulitis. 2. No pericolonic inflammatory changes are seen. 3. No free or loculated abdominal or pelvic collection is seen. [] Course & Med Decision Making Course & Med Decision Making Pertinent Labs and Imaging studies reviewed. (See chart for details) ED course: Patient arrived, was placed in bed, and tolerated exam well. She was able to tolerate oral contrast. She will was feeling much better with the pain medicine administered. She was transferred to and from radiology with any complications. After returning from radiology she had a bowel movement without any gross blood. No blood on the toilet paper. Discussed findings and plan with patient who voiced understanding. All questions were answered. She was discharged in improved condition. Medical decision making: There is no evidence of an obstruction or perforation. Given the timing from her colonoscopy, this may be from a healing/scab sloughing off, process. There is no evidence of diverticulitis. No evidence of significant anemia. No evidence of other surgical pathology. No pancreatitis. No bleeding diathesis. No evidence of inadequate pain control. We will prescribe pain medicine and antispasmodic. Will prescribe "just in case" antibiotics in case there is recurrence of bleeding or pain consistent with possible diverticulitis. Patient is aware to not take the antibiotics unless the discomfort or bleeding return.[] Dragon Disclaimer Dragon Disclaimer This electronic medical record was generated, in whole or in part, using a voice recognition dictation system. Departure Departure: Impression: Primary Impression: Rectal bleeding Disposition: 01 HOME, SELF-CARE Condition: IMPROVED Referrals: ROBINSON ESCOBAR MD (PCP) Follow-up in 2 days Patient Instructions: Diverticulosis, Rectal Bleeding Additional Instructions: Drink plenty of fluids. Follow-up with your regular doctor and GI specialist in 2 days. Return to the ER if worsening pain, bleeding, or any other concerns While Bactrim and metronidazole were prescribed for you, hold off on taking them for 2 days. Take them if there is worsening pain or bleeding. Scripts Metronidazole (METRONIDAZOLE) 500 Mg Tablet 500 MG PO QID for diverticular disease for 10 Days, #40 TAB Prov: DAT SEGURA DO 05/28/19 Tramadol Hcl (TRAMADOL HCL) 50 Mg Tablet 50 MG PO PRN Q6HRS PRN for PAIN, #20 TAB Prov: DAT SEGURA DO 05/28/19 Hyoscyamine Sulfate (LEVSIN) 0.125 Mg Tablet 0.125 MG PO QID for abdominal pain/cramping, #30 TAB Prov: DAT SEGURA DO 05/28/19 Sulfamethoxazole/Trimethoprim (BACTRIM DS TABLET) 1 Each Tablet 1 TAB PO BID for diverticular disease, #20 TAB Prov: DAT SEGURA DO 05/28/19 DAT SEGURA DO May 28, 2019 12:59
[2019-05-28] MEDS ORDERED: IV NORMAL SALINE 1,000ML 1,000 ML IV SCH (13:00)
[2019-05-28] MEDS ORDERED: MORPHINE SULFATE 2 MG/ML DISP.SYRIN. IV/SQ PRN (13:00)
[2019-05-28 13:18] LABS: BASO % 0 % (0-3); EOS # 0.2 x10^3/uL (0.0-0.7); EOS % 2 % (0-3); HEMATOCRIT 42.6 % (36.0-47.0); HEMOGLOBIN 14.8 g/dL (12.0-15.5); LYMPH # 2.3 x10^3/uL (1.0-4.8); LYMPH % 24 % (24-48); MEAN CORPUSCULAR HEMOGLOBIN 32 pg (25-35); MEAN CORPUSCULAR HGB CONC 35 g/dL (31-37); MEAN CORPUSCULAR VOLUME 92 fL (79-100); MONO # 0.5 x10^3/uL (0.0-1.1); MONO % 5 % (0-9); NEUT # 6.6 x10^3uL (1.8-7.7); NEUT % 69 % (31-73); PLATELET COUNT 313 x10^3/uL (140-400); RED BLOOD COUNT 4.61 x10^6/uL (3.50-5.40); RED CELL DISTRIBUTION WIDTH 13.5 % (11.5-14.5); WHITE BLOOD COUNT 9.6 x10^3/uL (4.0-11.0)
[2019-05-28] MEDS ORDERED: IOHEXOL 240 MG/ML 50ML VIAL. PO ONE (13:30)
[2019-05-28] MEDS ORDERED: IOHEXOL 300 MG/ML 75 ML VIAL. IV ONE (13:30)
[2019-05-28 13:32] LABS: ALBUMIN 4.1 g/dL (3.4-5.0); ALBUMIN/GLOBULIN RATIO 1.1 (1.0-1.7); CALCIUM 9.9 mg/dL (8.5-10.1); CREATININE 0.8 mg/dL (0.6-1.0); GFR 70.9; POTASSIUM 3.2 mmol/L (3.5-5.1); TOTAL BILIRUBIN 0.5 mg/dL (0.2-1.0); TOTAL PROTEIN 7.8 g/dL (6.4-8.2)
[2019-05-28 13:51] LABS: FECAL OB PT POSITIVE (NEG)
[2019-05-28 14:42] LABS: BILIRUBIN,URINE NEG (NEG); CLARITY,URINE HAZY; COLOR,URINE YELLOW; GLUCOSE,URINE NEG (NEG)
[2019-05-28 14:43] LABS: BACTERIA,URINE FEW /HPF (0-FEW); NITRITE,URINE NEG (NEG); SQUAMOUS EPITHELIAL CELL,UR FEW /LPF; UROBILINOGEN,URINE 0.2 mg/dL (0.2 mg/dL)
--- NOTE | 2019-05-28 14:47 | RAD ---
EXAM: CT Abdomen and Pelvis with IV contrast CLINICAL HISTORY: Rectal bleeding, colitis. COMPARISON: 12/17/2017 TECHNIQUE: Helical CT of the abdomen and pelvis was performed following the administration of intravenous contrast. Axial, coronal and sagittal reformatted images were generated. PQRS compliance statement - One or more of the following individualized dose reduction techniques were utilized for this study: 1. Automated exposure control 2. Adjustment of the mA and/or kV according to patient size 3. Use of iterative reconstruction technique FINDINGS: Lower chest: Calcified granuloma in the right lower lobe. Linear opacities in the lingula likely scarring/atelectasis. Coronary artery calcifications are seen Abdomen and Pelvis: Gallbladder is normal. No focal liver lesion. Spleen is unremarkable. Adrenal glands are normal in appearance. Pancreas is unremarkable. Symmetric nephrograms. Focal thinning in the lower pole the left kidney likely cortical scarring. No focal renal lesion. No hydronephrosis. No hydroureter. Descending colon and sigmoid are essentially decompressed. Appendix is not seen. No small or large bowel dilatation. Colonic diverticula are seen. No evidence for acute diverticulitis. Of note, evaluation of the pelvis is limited given streak artifact from right hip arthroplasty. No abdominal or pelvic ascites. No abdominal or pelvic lymphadenopathy. Atherosclerotic calcifications of the aorta are seen. Small fat-containing periumbilical hernia is seen. Bones: Left hip osteoarthritis. Right hip arthroplasty. Degenerative changes of the spine are also seen. IMPRESSION: 1. Colonic diverticulosis without evidence for acute diverticulitis. 2. No pericolonic inflammatory changes are seen. 3. No free or loculated abdominal or pelvic collection is seen. Electronically signed by: Dwight Meyer MD (05/28/2019 2:44 PM) [facility]
[2019-05-28 14:57] VITALS: BP 129/71
[2019-05-28] MEDS ORDERED: HYOSCYAMINE 0.125 MG TAB.RAPDIS PO ONE (15:15)
[2019-05-28] MEDS ORDERED: TRAM50TA PO (15:21)
[2019-05-28] MEDS ORDERED: HYOS0.1264 PO (15:21)
[2019-05-28] MEDS ORDERED: METR-34 PO (15:21)
[2019-05-28] MEDS ORDERED: SULF1TAB24 PO (15:21)
== END 2019-05-28 15:30 | disposition home or self-care (01) ==
LOC: ER 12:36
DX: K62.5 Hemorrhage of anus and rectum (principal); K57.30 Diverticulosis of large intestine without perforation or abscess without bleeding; M16.12 Unilateral primary osteoarthritis, left hip
CPT/HCPCS: 36415; 74177; 80053; 81001; 82274; 83690; 85025; 85610; 85730; 96374; 99285; J2270; Q9966; Q9967; 96361; J7030

== ENCOUNTER → 2019-05-30 | Outpatient (CLI) | payer MEDICARE, OTHER ==
[2019-05-28 14:57] VITALS: BP 129/71
[~2019-05-30] MED LIST changes: +HYOS0.1264 PO; +IOHEXOL 240 MG/ML 50ML VIAL. ONE; +METR-34 PO; +SULF1TAB24 PO; +TRAM50TA PO
--- NOTE | 2019-05-30 19:43 | RAD ---
INDICATION: Osteoporosis screening. Postmenopausal evaluation COMPARISON: None. TECHNIQUE: Bone densitometry was performed through the left forearm FINDINGS: Left forearm: BMD: 0.56 T-Score: -2.2 IMPRESSION: Forearm bone mineral density is on the border between osteopenia and osteoporosis. Electronically signed by: Dajuan Lamb MD (05/30/2019 7:40 PM) [facility]
--- NOTE | 2019-05-31 14:45 | RAD ---
DATE: 05/31/2019 EXAM: DIGITAL SCREEN BILAT W/CAD HISTORY: Routine screening evaluation COMPARISON: None available This study was interpreted with the benefit of Computerized Aided Detection (CAD). FINDINGS: Breast Density: FATTY The Breast Parenchyma is primarily fatty replaced. Breast parenchyma level density A.. No suspicious masses, microcalcifications or architectural distortion is present to suggest malignancy in either breast. The visualized axillae are unremarkable. IMPRESSION: No mammographic evidence of malignancy BI-RADS CATEGORY: 1 NEGATIVE RECOMMENDED FOLLOW-UP: 12M 12 MONTH FOLLOW-UP PQRS compliance statement: Patient information was entered into a reminder system with a target due date for the next mammogram. Mammography is a sensitive method for finding small breast cancers, but it does not detect them all and is not a substitute for careful clinical examination. A negative mammogram does not negate a clinically suspicious finding and should not result in delay in biopsying a clinically suspicious abnormality. "Our facility is accredited by the [employer] Mammography Program."
== END | disposition home or self-care (01) ==
LOC: DXRAD 09:41
PROVIDERS: ATTEND Specialist
DX: Z12.31 Encounter for screening mammogram for malignant neoplasm of breast (principal); Z13.820 Encounter for screening for osteoporosis; M85.832 Other specified disorders of bone density and structure, left forearm
CPT/HCPCS: 77067; 77081

== ENCOUNTER → 2020-07-03 | Outpatient (CLI) | payer MEDICARE, OTHER ==
[~2020-07-03] MED LIST changes: +INDO50CA15 PO; -INDO50CA5 PO; +IOHEXOL 240 MG/ML 50ML VIAL. PO ONE; +IOHEXOL 300 MG/ML 75 ML VIAL. IV ONE; -OMEP20CA10 PO; +OMEP20CA16 PO; +SIMV40TA18 PO; -SIMV40TA3 PO
--- NOTE | 2020-07-03 12:24 | RAD ---
EXAM: Abdomen and pelvis CT with intravenous contrast. HISTORY: Crohn's disease. Radiculitis. TECHNIQUE: Computed tomographic images of the abdomen and pelvis were obtained following the administration of intravenous contrast. Multiplanar reformatting was performed. *One or more of the following individualized dose reduction techniques were utilized for this examination: 1. Automated exposure control. 2. Adjustment of the mA and/or kV according to patient size. 3. Use of iterative reconstruction technique. COMPARISON: 05/28/2019. FINDINGS: Evaluation of the lower thorax demonstrates a stable subcarinal and medial right lower lobe calcified granulomas. There is no infiltrate or pleural effusion. There is no suspicious hepatic lesion. There is mild hepatic steatosis. The gallbladder, pancreas, spleen and adrenal glands are unremarkable. The kidneys are unremarkable. The appendix is absent. There is moderate stool throughout the colon. There is sigmoid diverticulosis. There is no diverticulitis. The bladder is partially obscured due to right hip arthroplasty metallic artifact. The aorta is normal in caliber. There is aortobiiliac atherosclerosis. There is no lymphadenopathy. There is degenerative change throughout the lumbar spine. There are left hemicolectomy changes at L5-S1. There is severe left hip osteoarthritis. IMPRESSION: 1. Sigmoid diverticulosis. 2. Mild hepatic steatosis. 3. Moderate colonic stool. 4. No acute abdominal or pelvic finding. Electronically signed by: Luba Nunes MD (07/03/2020 12:21 PM) [facility]
== END | disposition home or self-care (01) ==
LOC: CT 08:17
PROVIDERS: ATTEND Specialist
DX: K76.0 Fatty (change of) liver, not elsewhere classified (principal); K57.30 Diverticulosis of large intestine without perforation or abscess without bleeding; J84.10 Pulmonary fibrosis, unspecified; M16.12 Unilateral primary osteoarthritis, left hip; M47.816 Spondylosis without myelopathy or radiculopathy, lumbar region
CPT/HCPCS: 74177; Q9966; Q9967

== ENCOUNTER 2020-08-22 23:26 | Emergency (ER) | payer MEDICARE, OTHER ==
[~2020-08-22] VITALS: Ht 154.9 cm; Wt 76.4 kg
[~2020-08-22 23:26] MED LIST changes: -IOHEXOL 240 MG/ML 50ML VIAL. ONE; -IOHEXOL 240 MG/ML 50ML VIAL. PO ONE; -IOHEXOL 300 MG/ML 75 ML VIAL. IV ONE
[2020-08-22 23:58] VITALS: BP 158/98
[2020-08-23] MEDS ORDERED: BACLOFEN 10 MG TABLET PO STA (00:23)
[2020-08-23] MEDS ORDERED: predniSONE 10 MG TABLET PO ONE (00:30)
[2020-08-23] MEDS ORDERED: PRED-220 PO (00:34)
[2020-08-23] MEDS ORDERED: BACL10TA PO (00:34)
[2020-08-23] MEDS ORDERED: TRAM50TA PO (00:34)
--- NOTE | 2020-08-23 00:35 | PHYS DOC ---
Past History Past Medical History: Arthritis, Asthma, CVA, Diabetes, Fibromyalgia, GERD, Hypertension, Other Past Surgical History: Hip Replacement, Hysterectomy, Oophorectomy, Tonsillectomy, Other Smoking: Non-smoker Alcohol Use: None Drug Use: None General Adult EDM: Chief Complaint: Neck Pain HPI: HPI: 69-year-old female presents with left-sided neck pain. The patient had pain that started last night. It is a sharp pain that started in the supraspinatus area and radiates up her neck to the base of her skull. It has been intermittent throughout the day, but this evening it is more consistent. She rates it at a moderate level. She is unable to fall asleep so she came to the emergency room. She has tried multiple positions with her adjustable bed without relief. She is tried Tylenol without relief. She cannot take ibuprofen due to GERD. She denies any falls or trauma. She has had pain like this with her neck before several years ago, but no official diagnosis was made. It improved with pain medication and exercises. She denies any other concerns or complaints at this time. Review of Systems: Review of Systems: Constitutional: Denies fever or chills Eyes: Denies change in visual acuity HENT: Neck pain Respiratory: Denies cough or shortness of breath Cardiovascular: Denies chest pain or edema GI: Denies abdominal pain, nausea, vomiting, bloody stools or diarrhea : Denies dysuria Musculoskeletal: Denies back pain or joint pain Integument: Denies rash Neurologic: Denies headache, focal weakness or sensory changes Endocrine: Denies polyuria or polydipsia Lymphatic: Denies swollen glands Psychiatric: Denies depression or anxiety Heart Score: Risk Factors: Risk Factors: DM, Current or recent (<one month) smoker, HTN, HLP, family history of CAD, obesity. Risk Scores: Score 0 - 3: 2.5% MACE over next 6 weeks - Discharge Home Score 4 - 6: 20.3% MACE over next 6 weeks - Admit for Clinical Observation Score 7 - 10: 72.7% MACE over next 6 weeks - Early Invasive Strategies Allergies: Allergies: Allergies Coded Allergies Type Severity Reaction Last Updated Verified Penicillins Allergy Intermediate 05/17/19 Yes ibuprofen Allergy Unknown 05/17/19 Yes oxycodone Allergy Unknown 05/17/19 Yes Physical Exam: PE: Constitutional: Well developed, well nourished, no acute distress, non-toxic appearance. [] HENT: Normocephalic, atraumatic, bilateral external ears normal, oropharynx moist, no oral exudates, nose normal. [] Eyes: PERRLA, EOMI, conjunctiva normal, no discharge. [] Neck: Tenderness of the left paracervical muscles on the left lateral trapezius distribution. Moderate muscle spasm in the same area. No bony tenderness over the cervical spine. [] Cardiovascular: Heart rate regular rhythm, no murmur [] Lungs & Thorax: Bilateral breath sounds clear to auscultation [] Abdomen: Bowel sounds normal, soft, no tenderness, no masses, no pulsatile masses. [] Skin: Warm, dry, no erythema, no rash. [] Back: No tenderness, no CVA tenderness. [] Extremities: No tenderness, no cyanosis, no clubbing, ROM intact, no edema. [] Neurologic: Alert and oriented X 3, normal motor function, normal sensory function, no focal deficits noted. [] Psychologic: Affect normal, judgement normal, mood normal. [] Current Patient Data: Vital Signs: Vital Signs Date Time Temp Pulse Resp B/P (MAP) Pulse Ox O2 Delivery O2 Flow Rate FiO2 08/22/20 23:58 98.2 70 18 158/98 (118) 96 Room Air EKG: EKG: [] Radiology/Procedures: Radiology/Procedures: [] Course & Med Decision Making: Course & Med Decision Making Pertinent Labs and Imaging studies reviewed. (See chart for details) I will treat the patient with baclofen, prednisone, and tramadol. She has an allergy to oxycodone so I will avoid [place]. The patient is in agreement with the plan. She is stable for discharge at this time. [] Dragon Disclaimer: Dragon Disclaimer: This electronic medical record was generated, in whole or in part, using a voice recognition dictation system. Departure Departure: Impression: Primary Impression: Neck pain Disposition: 01 DC HOME SELF CARE/HOMELESS Condition: STABLE Referrals: ROBINSON ESCOBAR MD (PCP) Patient Instructions: Cervical Strain and Sprain with Rehab[facility] Scripts Prednisone (PREDNISONE) 10 Mg Tablet 40 MG PO DAILY for cervical pain for 3 Days, #12 TAB Prov: JEANNETTE WARNER DO 08/23/20 Tramadol Hcl (TRAMADOL HCL) 50 Mg Tablet 50 MG PO PRN Q6HRS PRN for PAIN, #14 TAB Prov: JEANNETTE WARNER DO 08/23/20 Baclofen (BACLOFEN) 10 Mg Tablet 10 MG PO TID PRN for MUSCLE SPASMS for 7 Days, #21 TAB 0 Refills Prov: JEANNETTE WARNER DO 08/23/20 JEANNETTE WARNER DO Aug 23, 2020 00:35
[2020-08-23] MEDS ORDERED: traMADol 50 MG TABLET PO ONE (00:45)
[2020-08-23] MEDS ORDERED: CYCLOBENZAPRINE 10 MG TABLET. PO ONE (00:45)
[2020-08-23] MEDS ORDERED: START PACK - traMADol 1 STARTPACK TABLET PO ONE (00:45)
== END 2020-08-23 00:45 | disposition home or self-care (01) ==
LOC: ER 23:26
DX: M54.2 Cervicalgia (principal); M62.838 Other muscle spasm; M19.90 Unspecified osteoarthritis, unspecified site; J45.909 Unspecified asthma, uncomplicated; E11.9 Type 2 diabetes mellitus without complications; M79.7 Fibromyalgia; K21.9 Gastro-esophageal reflux disease without esophagitis; I10 Essential (primary) hypertension; Z88.0 Allergy status to penicillin; Z88.5 Allergy status to narcotic agent; Z88.6 Allergy status to analgesic agent
CPT/HCPCS: 99284; J7512

== ENCOUNTER 2020-08-27 15:30 | Emergency (ER) | payer MEDICARE, OTHER ==
[~2020-08-27] VITALS: Ht 154.9 cm; Wt 77.3 kg
[~2020-08-27 15:30] MED LIST changes: +BACL10TA PO; +PRED-220 PO
--- NOTE | 2020-08-27 15:50 | PHYS DOC ---
Past History Past Medical History: Dementia, Hypertension (NIKOLAY MAN APRN) Past Surgical History: Hip Replacement, Other Additional Past Surgical Histo: BACK SURERY, CARPEL TUNNEL RELEASE, CATARACT SURGERY (NIKOLAY MAN APRN) Smoking: Non-smoker Alcohol Use: None Drug Use: None (NIKOLAY MAN APRN) Adult General Chief Complaint Chief Complaint: Neck Pain HPI HPI Patient is a female with history of dementia, hypertension, cervical curvature, who presents to the ED today complaining of 8 out of 10 left lateral neck pain that has been going on for 5 days. Patient reports being seen in the ED 5 days ago for the same complaint. She states she was sent home with a muscle relaxer and some pain medicine. She states the pain medicine is not touching her pain. Denies any injury. Denies any chest pain or shortness of breath. Denies any pain radiating to bilateral upper extremities. She states the pain is worse when she rotates her head to the left side. (NIKOLAY MAN APRN) Review of Systems Review of Systems Constitutional: Denies fever or chills [] Eyes: Denies change in visual acuity, redness, or eye pain [] HENT: Denies nasal congestion or sore throat [] Respiratory: Denies cough or shortness of breath [] Cardiovascular: No additional information not addressed in HPI [] GI: Denies abdominal pain, nausea, vomiting, bloody stools or diarrhea [] : Denies dysuria or hematuria [] Musculoskeletal: Reports left lateral neck pain Integument: Denies rash or skin lesions [] Neurologic: Denies headache, focal weakness or sensory changes [] All other systems were reviewed and found to be within normal limits, except as documented in this note. (NIKOLAY MAN APRN) Allergies Allergies Allergies Coded Allergies Type Severity Reaction Last Updated Verified Penicillins Allergy Intermediate 08/27/20 Yes ibuprofen Allergy Intermediate 08/27/20 Yes oxycodone Allergy Intermediate 08/27/20 Yes (NIKOLAY MAN APRN) Physical Exam Physical Exam Constitutional: Well developed, well nourished, no acute distress, non-toxic appearance. [] HENT: Normocephalic, atraumatic, bilateral external ears normal, oropharynx moist, no oral exudates, nose normal. [] Eyes: PERRLA, EOMI, conjunctiva normal, no discharge. [] Neck: Limited range of motion to the left cervical spine, no tenderness, supple, no stridor. [] Cardiovascular:Heart rate regular rhythm, no murmur [] Lungs & Thorax: Bilateral breath sounds clear to auscultation [] Abdomen: Bowel sounds normal, soft, no tenderness, no masses, no pulsatile masses. [] Skin: Warm, dry, no erythema, no rash. [] Back: No tenderness, no CVA tenderness. [] Extremities: No tenderness, no cyanosis, no clubbing, ROM intact, no edema. [] Neurologic: Alert and oriented X 3, normal motor function, normal sensory function, no focal deficits noted. [] Psychologic: Affect normal, judgement normal, mood normal. [] (NIKOLAY MAN APRN) Current Patient Data Vital Signs Vital Signs Date Time Temp Pulse Resp B/P (MAP) Pulse Ox O2 Delivery O2 Flow Rate FiO2 08/27/20 15:42 98.4 60 18 208/121 (150) 97 Room Air (NIKOLAY MAN APRN) EKG EKG [] (NIKOLAY MAN APRN) Radiology/Procedures Radiology/Procedures [] (NIKOLAY MAN APRN) Heart Score Risk Factors: Risk Factors: DM, Current or recent (<one month) smoker, HTN, HLP, family history of CAD, obesity. Risk Scores: Risk Factors: DM, Current or recent (<one month) smoker, HTN, HLP, family history of CAD, obesity. (NIKOLAY MAN APRN) Course & Med Decision Making Course & Med Decision Making Pertinent Labs and Imaging studies reviewed. (See chart for details) This is a 69-year-old male patient presenting to the ED today with left sided neck pain for 5 days hx of cervical curvature. She was seen in the ED 5 days ago and was started on baclofen, tramadol and prednisone. She states they are not helping. Has an appointment with her on PCP next week on Monday. Pain appears muscle skeletal. We discussed benefits and risk of x-rays. She does not need imaging considering she has no injury and has no cervical spine tenderness. She was discharged with gabapentin to take with the rest of her medications. (NIKOLAY MAN APRN) Dragon Disclaimer Dragon Disclaimer This electronic medical record was generated, in whole or in part, using a voice recognition dictation system. (NIKOLAY MAN APRN) Dragon Disclaimer agree with treatment plan (DEYA STROUD DO) Departure Departure: Impression: Primary Impression: Neck pain on left side Disposition: 01 DC HOME SELF CARE/HOMELESS Condition: STABLE Referrals: ROBINSON ESCOBAR MD (PCP) Follow-up on Monday next week Patient Instructions: Musculoskeletal Pain Additional Instructions: You were evaluated in the emergency room for neck pain. We highly recommend you follow-up with your doctor next week as scheduled. Scripts Gabapentin (GABAPENTIN) 600 Mg Tablet 600 MG PO TID for NEUROGENIC PAIN, #30 TAB Prov: NIKOLAY MAN BOILER CLEANER 08/27/20 Tramadol Hcl (TRAMADOL HCL) 50 Mg Tablet 50 MG PO PRN Q6HRS PRN for PAIN, #30 TAB Prov: MINNAANIKOLAY BOILER CLEANER 08/27/20 NIKOLAY MAN BOILER CLEANER Aug 27, 2020 15:49 DEYA STROUD DO Aug 27, 2020 17:35
[2020-08-27] MEDS ORDERED: GABA600T7 PO (15:59)
[2020-08-27] MEDS ORDERED: TRAM50TA PO (15:59)
[2020-08-27] MEDS ORDERED: cloNIDine HCL 0.1 MG TABLET PO ONE (16:00)
[2020-08-27] MEDS ORDERED: GABAPENTIN 100 MG CAPSULE. PO ONE (16:00)
[2020-08-27] MEDS ORDERED: KETOROLAC 60 MG/2 ML VIAL. IM ONE (16:00)
[2020-08-27] MEDS ORDERED: predniSONE 20 MG TABLET PO ONE (16:00)
[2020-08-27 16:47] VITALS: BP 185/108
== END 2020-08-27 16:52 | disposition home or self-care (01) ==
LOC: ER 15:30
DX: M54.2 Cervicalgia (principal); F03.90 Unspecified dementia, unspecified severity, without behavioral disturbance, psychotic disturbance, mood disturbance, and anxiety; I10 Essential (primary) hypertension; Z98.890 Other specified postprocedural states; Z88.0 Allergy status to penicillin; Z88.5 Allergy status to narcotic agent; Z88.6 Allergy status to analgesic agent
CPT/HCPCS: 96372; 99284; J1885; J7512

== ENCOUNTER → 2020-09-11 | Outpatient (CLI) | payer MEDICARE, OTHER ==
[2020-08-27 16:47] VITALS: BP 185/108
--- NOTE | 2020-09-11 09:33 | RAD ---
EXAM: Cervical spine, 5 views. HISTORY: Pain. COMPARISON: None. FINDINGS: 5 views of the cervical spine are obtained. There is minimal anterolisthesis of C3 on C4 and C4 on C5 and C5 on C6. There is mild multilevel endplate remodeling. There is advanced facet arthropathy at the upper cervical levels. There is associated left foraminal stenosis primarily at C4-C5 and right foraminal stenosis primarily at C3-C4. IMPRESSION: 1. Multilevel degenerative change, primarily involving facet arthropathy at the upper and mid cervical levels contributing to foraminal stenosis described above. 2. Mild multilevel listhesis. Electronically signed by: Luba Nunes MD (09/11/2020 9:30 AM) [id number]
== END ==
LOC: DXRAD 09:12
PROVIDERS: ATTEND Specialist
DX: M47.812 Spondylosis without myelopathy or radiculopathy, cervical region (principal); M43.12 Spondylolisthesis, cervical region; M48.02 Spinal stenosis, cervical region
CPT/HCPCS: 72050

== ENCOUNTER 2021-06-13 23:38 | Emergency (ER) | payer MEDICARE, OTHER ==
[~2021-06-13] VITALS: Ht 154.9 cm; Wt 81.0 kg
[~2021-06-13 23:38] MED LIST changes: -DOXY100C2 PO; +DOXY100C3 PO
--- NOTE | 2021-06-13 23:45 | PHYS DOC ---
Past History Past Medical History: Dementia, Hypertension Past Surgical History: Hip Replacement, Other Additional Past Surgical Histo: BACK SURERY, CARPEL TUNNEL RELEASE, CATARACT SURGERY Smoking: Non-smoker Alcohol Use: None Drug Use: None General Adult EDM: Chief Complaint: BLOODY STOOL HPI: HPI: "..I am having a lot bright red blood ... with my stools.. Several days.. I ve had this before... but I just want to be checked out..".. " I am supposed to have a EGD and colonoscopy.. Because of polyps... But I have been putting it off because of moving to [place]" Patient is a 70 year old female who presents with above hx and complaints of rectal bleeding. Patient is noted bleeding is bright red after stools. Patient has past medical history of GI bleeding, hemorrhoids, and colon polyps. Patient is also has a history of esophageal polyps. Patient states the last colonoscopy and EGD on May 17, 2019. At that time biopsies were performed and polyps removed. Patient denies any coffee-ground emesis. Patient denies any tarry stools. Patient denies any trauma. Patient denies any recent travel but did go to [place] 2 weeks ago to see her sister. Patient does plan to move to [place] in the next few weeks. Patient denies any recent of bad food. Patient denies any history of coagulopathy or excessive use of NSAIDs. Patient does have past medical history of arthritis, asthma, CVA, diabetes, fibromyalgia, GERD, hypertension, left hip replacement, hysterectomy, oophorectomy, tonsillectomy, and irritable bowel. Patient normally follows with Dr. Escobar. Patient has not gotten Covid vaccination. Review of Systems: Review of Systems: Constitutional: Denies fever or chills Eyes: Denies change in visual acuity HENT: Denies nasal congestion or sore throat Respiratory: Denies cough or shortness of breath Cardiovascular: Denies chest pain or edema GI: Denies abdominal pain, nausea, vomiting,. Complains of black-red bloody stools. Denies diarrhea or constipation. : Denies dysuria Musculoskeletal: Denies back pain or joint pain Integument: Denies rash Neurologic: Denies headache, focal weakness or sensory changes Endocrine: Denies polyuria or polydipsia Lymphatic: Denies swollen glands Psychiatric: Denies depression or anxiety Family History: Family History: Noncontributory presentation Current Medications: Current Meds: See nursing for home meds Allergies: Allergies: Allergies Coded Allergies Type Severity Reaction Last Updated Verified Penicillins Allergy Intermediate 08/27/20 Yes ibuprofen Allergy Intermediate 08/27/20 Yes oxycodone Allergy Intermediate 08/27/20 Yes Physical Exam: PE: Constitutional: no acute distress, non-toxic appearance. [] HENT: Normocephalic, atraumatic, bilateral external ears normal, oropharynx moist, no oral exudates, nose normal. [] Eyes: PERRLA, EOMI, conjunctiva normal, no discharge. Glasses Neck: Normal range of motion, no tenderness, supple, no stridor. [] Cardiovascular:Heart rate regular rhythm, no murmur [] The bedside monitor shows a supraventricular rhythm with what appears to be a fascicular block. Lungs & Thorax: Bilateral breath sounds equal apex with few scattered wheezes on auscultation [] Abdomen: Bowel sounds normal, soft, no tenderness, no masses, no pulsatile masses. Rectal exam shows a large central hemorrhoid that does not appear to be inflamed. Does have some bright red bleeding at edge of hemorrhoid. Does have some hard stool in rectal vault. No rebound pain. Multiple abdomen surgery scars Skin: Warm, dry, no erythema, no rash. [] Back: No tenderness, no CVA tenderness. [] Extremities: No tenderness, no cyanosis, no clubbing, ROM intact, no edema. Arthritic changes. No cording. No psoas sign. Neurologic: Alert and oriented X 3, normal motor function, normal sensory function, no focal deficits noted. [] Psychologic: Affect anxious, judgement normal, mood normal. [] EKG: EKG: My interpretation EKG shows a sinus rhythm at 81 bpm. There is findings of a left fascicular block. There is some nonspecific ST and T wave abnormalities. Abnormal EKG time of EKG reading to 10 hours [] Radiology/Procedures: Radiology/Procedures: [][address] [address] IMAGING REPORT Signed PATIENT: MADI MARISCAL ACCOUNT: [id number] : 1950 LOCATION: ER AGE: 70 SEX: F EXAM STATUS: REG ER ORD. PHYSICIAN: DANETTE GRANT MD REASON: abd. pain , bleeding PROCEDURE: ACUTE ABDOMEN SERIES Study: XR ABDOMEN COMP ACUTE Indication: Abdominal pain. Comparison: CT abdomen/pelvis 07/03/2020 Findings: The cardiomediastinal silhouette and sridhar are within normal limits. No localized airspace opacity, pleural effusion or pneumothorax. Asymmetric elevation of the right hemidiaphragm with mild basilar volume loss. The bowel gas pattern is nonobstructive. No radiographic evidence for pneumoperitoneum. Only a small amount of well-formed stool. Scattered chronic osseous findings and a right hip arthroplasty. Impression: 1. No acute radiographic abnormality of the chest. 2. Nonobstructive bowel gas pattern. Electronically signed by: CHATA LEVIN MD (06/14/2021 1:53 AM) [facility] DICTATED AND SIGNED BY: CHATA LEVIN MD DATE: 06/14/21151 CC: DANETTE GRANT MD; ROBINSON ESCOBAR MD ~MTH0 0 Heart Score: C/O Chest Pain: N/A HEART Score for Chest Pain: HEART Score for Chest Pain Response (Comments) Value History Moderately Suspicious 1 ECG Nonspecific Repolarizatio 1 Age > 65 2 Risk Factors 1 or 2 Risk Factors 1 Troponin < Normal Limit 0 Total 5 Risk Factors: Risk Factors: DM, Current or recent (<one month) smoker, HTN, HLP, family history of CAD, obesity. Risk Scores: Score 0 - 3: 2.5% MACE over next 6 weeks - Discharge Home Score 4 - 6: 20.3% MACE over next 6 weeks - Admit for Clinical Observation Score 7 - 10: 72.7% MACE over next 6 weeks - Early Invasive Strategies Course & Med Decision Making: Course & Med Decision Making Pertinent Labs and Imaging studies reviewed. (See chart for details) Recommend patient stay on a clear fluid diet for the next couple days. No solids. No milk products. Allow bowel rest. Recommend patient get repeat colonoscopy and EGD and not wait for move to [place] , unless she has a GI specialist there to obtain exam. Monitor bleeding. Follow-up primary care. Return if any concerns. Current hemoglobin stable 13.8. Patient did take an extra potassium tablet with meals upon arrival home. Impression: 1. Outlet rectal bleeding 2. Constipation 3. History of colon and esophageal polyps 4. History of diverticulosis 5. Mild hypokalemia 3.1 [] Dragon Disclaimer: Dragon Disclaimer: This electronic medical record was generated, in whole or in part, using a voice recognition dictation system. Departure Departure: Referrals: ROBINSON ESCOBAR MD (PCP) [place] Disclaimer This chart was dictated in whole or in part using Voice Recognition software in a busy, high-work load, and often noisy Emergency Department environment. It may contain unintended and wholly unrecognized errors or omissions. Dragon Disclaimer This chart was dictated in whole or in part using Voice Recognition software in a busy, high-work load, and often noisy Emergency Department environment. It may contain unintended and wholly unrecognized errors or omissions. DANETTE GRANT MD Jun 13, 2021 23:45
[2021-06-14] MEDS ORDERED: FAMOTIDINE 20 MG/2 ML VIAL IVP ONE
[2021-06-14] MEDS ORDERED: diphenhydrAMINE 50 MG/ML VIAL IV ONE
[2021-06-14] MEDS ORDERED: ACETAMINOPHEN 500 MG TABLET PO ONE
[2021-06-14] MEDS ORDERED: IV RINGERS SOLUTION,LACTATED 1,000 ML IV SCH
[2021-06-14 00:40] LABS: BASO % 0 % (0-3); EOS # 0.1 x10^3/uL (0.0-0.7); EOS % 1 % (0-3); HEMATOCRIT 41.6 % (36.0-47.0); HEMOGLOBIN 13.8 g/dL (12.0-15.5); LYMPH # 2.2 x10^3/uL (1.0-4.8); LYMPH % 16 % (24-48); MEAN CORPUSCULAR HEMOGLOBIN 30 pg (25-35); MEAN CORPUSCULAR HGB CONC 33 g/dL (31-37); MEAN CORPUSCULAR VOLUME 91 fL (79-100); MONO # 0.9 x10^3/uL (0.0-1.1); MONO % 6 % (0-9); NEUT # 10.5 x10^3uL (1.8-7.7); NEUT % 77 % (31-73); PLATELET COUNT 281 x10^3/uL (140-400); RED BLOOD COUNT 4.58 x10^6/uL (3.50-5.40); RED CELL DISTRIBUTION WIDTH 14.2 % (11.5-14.5); WHITE BLOOD COUNT 13.7 x10^3/uL (4.0-11.0)
[2021-06-14 00:49] LABS: CALCIUM 9.2 mg/dL (8.5-10.1); CREATININE 0.8 mg/dL (0.6-1.0); GFR 70.5; POTASSIUM 3.1 mmol/L (3.5-5.1)
[2021-06-14 00:54] LABS: ALBUMIN 3.9 g/dL (3.4-5.0); DIRECT BILIRUBIN 0.2 mg/dL (0.0-0.2); TOTAL BILIRUBIN 0.7 mg/dL (0.2-1.0); TOTAL PROTEIN 6.9 g/dL (6.4-8.2)
--- NOTE | 2021-06-14 01:56 | RAD ---
Study: XR ABDOMEN COMP ACUTE Indication: Abdominal pain. Comparison: CT abdomen/pelvis 07/03/2020 Findings: The cardiomediastinal silhouette and sridhar are within normal limits. No localized airspace opacity, pl eural effusion or pneumothorax. Asymmetric elevation of the right hemidiaphragm with mild basilar vol ume loss. The bowel gas pattern is nonobstructive. No radiographic evidence for pneumoperitoneum. Only a small amount of well-formed stool. Scattered chronic osseous findings and a right hip arthroplasty. Impression: 1. No acute radiographic abnormality of the chest. 2. Nonobstructive bowel gas pattern. Electronically signed by: CHATA LEVIN MD (06/14/2021 1:53 AM) [facility]
--- NOTE | 2021-06-14 02:38 | EKG ---
[address] [address] Test Date: 2021-06-14 Test Time: 02:10:58 Pat Name: MADI MARISCAL Department: Room: Gender: F [employer] Person: LITZY : 1950 Requested By: DANETTE GRANT Order Number: [id number] Reading MD: Measurements Intervals [place] Rate: 81 P: 263 SD: 164 QRS: -44 QRSD: 92 T: 97 QT: 396 QTc: 466 Interpretive Statements SUPRAVENTRICULAR RHYTHM ABNORMAL LEFT AXIS DEVIATION R-S TRANSITION ZONE IN V LEADS DISPLACED TO THE LEFT LEFT ANTERIOR FASCICULAR BLOCK CONSIDER LEFT VENTRICULAR HYPERTROPHY ST & T ABNORMALITY, CONSIDER HIGH LATERAL ISCHEMIA OR LEFT VENTRICULAR STRAIN ABNORMAL ECG RI6.02 No previous ECG available for comparison
[2021-06-14 03:06] LABS: BILIRUBIN,URINE SMALL (NEG); CLARITY,URINE HAZY; COLOR,URINE YELLOW; GLUCOSE,URINE NEG (NEG)
[2021-06-14 03:07] LABS: BACTERIA,URINE FEW /HPF (0-FEW); NITRITE,URINE NEG (NEG); RBC,URINE 0 /HPF (0-2); SQUAMOUS EPITHELIAL CELL,UR OCC /LPF; UROBILINOGEN,URINE 0.2 mg/dL (0.2 mg/dL); WBC,URINE >40 /HPF (0-4)
[2021-06-14 06:55] VITALS: BP 150/76
== END 2021-06-14 07:08 | disposition home or self-care (01) ==
LOC: ER 23:38
DX: K62.5 Hemorrhage of anus and rectum (principal); K59.00 Constipation, unspecified; E87.6 Hypokalemia; Z88.0 Allergy status to penicillin; Z88.6 Allergy status to analgesic agent
CPT/HCPCS: 36415; 74022; 80048; 80076; 81001; 85025; 85610; 85730; 87086; 93005; 96361; 96374; 96375; 99285; J1200; J3490; J7120